=== PATIENT | male | born 1995 | race Caucasian/White ===

== ENCOUNTER → 2016-12-24 | Outpatient (CLI) | payer OTHER ==
[2016-12-24 13:27] VITALS: BP 139/82
--- NOTE | 2016-12-24 13:27 | Urgent Care T Sheet Gen (E) ---
Intake General Temperature (Fahrenheit): 98.2 Pulse: 72 Blood Pressure Systolic: 139 Blood Pressure Diastolic: 82 Respirations: 18 SPO2: 97 Description of Symptoms Patient presents with L lateral foot pain since Thursday. Patient was at football practice, wearing cleats, when he rolled his foot/ankle. Ankle doesn' t hurt but the lateral foot does, mostly with weight bearing. No numbness or tingling. Been wearing a CAM boot and been icing it per the [facility] centrifugal spinner. No meds. No ultrasound or Estim. Wants to rule out fracture. Respiratory Constitutional Symptoms: No syptoms reported EENTM: No symptoms reported Respiratory: No symptoms reported Cardiovascular: No symptoms reported Musculoskeletal: Other (L foot pain) All Other Systems Reviewed Remaining Systems: All other systems reviewed with negative findings Physical Exam Physical Exam General Appearance: WD/WN No apparent distress Skin Exam: Other (normal color to the L foot. No bruising or swelling.) Extremity Exam: Normal capillary refill Other (examination of the L foot reveals no tenderness along the medial or lateral malleolus. no pain along the anterior talofibular ligament. pain is along the midshaft and distal L 5th metatarsal. no crepitus. full ROM in the L foot and ankle.) Neurologic/Psychiatric Exam: No motor deficits No sensory deficits Abnormal gait (wearing CAM boot) Progress/Orders Progress Note: Progress Note 3view xray of L foot reveals: acute fracture of the fifth metatarsal of the L foot Departure Urgent Care Impression Impression: Primary Impression: Metatarsal fracture Qualified Code: S92.355A - Nondisplaced fracture of fifth metatarsal bone, left foot, initial encounter for closed fracture Departure Disposition: 01 HOME OR SELF-CARE Condition: Stable Additional Instructions: Report called to michael Vilchis at [facility]. Patient is being referred to Dr Villalta, per the [facility]'s protocol. In the meantime, recommended continuing with CAM boot. Ice. Ibuprofen as needed Patient and centrifugal spinner understand DC instructions. All questions were answered. End of report . RICH IBARRA Dec 24, 2016 11:22
== END ==
LOC: MHUC 10:35
PROVIDERS: ATTEND Physician Assistant
DX: S92.355A Nondisplaced fracture of fifth metatarsal bone, left foot, initial encounter for closed fracture (principal); Y93.61 Activity, american tackle football
CPT/HCPCS: 99203

== ENCOUNTER → 2016-12-24 | Outpatient (CLI) | payer OTHER ==
--- NOTE | 2016-12-24 11:51 | Diagnostic Imaging Report ---
INDICATION: Foot pain. Football injury. COMPARISON: None FINDINGS: 3 radiographic views of the left foot were obtained. There is acute incomplete fracture involving the proximal margins of the fifth metatarsal. Fracture line extends from the lateral cortex medially. There is no appreciable disruption of the medial cortex. There is no significant displacement of fracture fragments. There is no intra-articular extension. No unexpected radiopaque foreign bodies are seen. Soft tissue structures are unremarkable. IMPRESSION: 1. Acute fracture of the fifth metatarsal of the left foot as described above. Results were discussed with Aisha Malone by Dr. Lopez at 1145 hrs on 12/24/2016 Dictated by: Dictated on workstation # [id number]
== END ==
LOC: RAD 11:08
PROVIDERS: ATTEND Physician Assistant
DX: M79.672 Pain in left foot (principal); S92.352A Displaced fracture of fifth metatarsal bone, left foot, initial encounter for closed fracture; X58.XXXA Exposure to other specified factors, initial encounter; Y93.61 Activity, american tackle football